=== PATIENT | male | born 1985 | race Two or more races ===

== ENCOUNTER → 2017-03-08 | Outpatient (CLI) | payer OTHER ==
--- NOTE | 2017-03-08 16:00 | RADIOLOGY REPORT (SQ) ---
EXAM DESCRIPTION: VOIDING CYSTOURETHROGRAM; INJECT VCU/CYSTOGRAM COMPLETED DATE/TIME: 03/08/2017 3:31 pm REASON FOR STUDY: VESICOURETERAL REFLUX COMPARISON: None. FLUOROSCOPY TIME: FLUORO TIME: 2 minutes 46 seconds. 17 images saved to PACS. LIMITATIONS: None. PROCEDURE: Procedure explained to the patient who gave consent. Urinary bladder catheterized with d irect visual inspection using sterile technique. Bladder filled with approximately 300 ml of non-ion ic contrast via gravity drip. FINDINGS: BLADDER: Normal in size and contour. No filling defects. URETHRA: Normal. Smooth contour without mucosal irregularity or stricture. No obstruction. LEFT URETER: No vesicoureteral reflux. RIGHT URETER: No vesicoureteral reflux. OTHER FINDINGS: No other abnormality noted in soft tissues or bone. POST VOID: Minimal contrast residual. OTHER: No other significant finding. IMPRESSION: NORMAL VOIDING CYSTOURETHROGRAM. COMMENT: Quality ID [id number]: Final reports for procedures using fluoroscopy that document radiation exp osure indices, or exposure time and number of fluorographic images (if radiation exposure indices are not available) TECHNICAL DOCUMENTATION: JOB ID: [id number] [employer]- All Rights Reserved
== END ==
LOC: RAD 14:22
PROVIDERS: ATTEND Urology
DX: N13.70 Vesicoureteral-reflux, unspecified (principal)
CPT/HCPCS: 51600; 74455